=== PATIENT | male | born 1960 | race Caucasian/White ===

== ENCOUNTER 2017-08-13 07:22 | Emergency (ER) | payer OTHER ==
[~2017-08-13] VITALS: Ht 177.8 cm; Wt 111.6 kg
[~2017-08-13 07:22] MED LIST: ECOT500T PO; MOTR200T PO
[2017-08-13 07:26] VITALS: BP 189/85; PULSE 89; RESP 16; TEMP 97.9; O2SAT 97
[2017-08-13] MEDS ORDERED: LOSA100T PO (07:38)
[2017-08-13] MEDS ORDERED: HYDR25TA5 PO (07:38)
--- NOTE | 2017-08-13 08:00 | PD ---
HPI Chief Complaint: Abnormal Results Time Seen by Provider: 07:38 Travel History International Travel<30 days: No Contact w/Intl Traveler<30days: No Traveled to known affect area: No History of Present Illness HPI 57yo M with no PMH presents to the ED with c/o pain in all his joints for a few weeks and is getting worst. Pt went to his PMD for routine check up about a month ago. He was called the next day because his blood count was high and was told to come in to have his blood drawn and further evaluation. Pt decided to go to a blood place to just have to blood released. Has not had further work up. Had some chills but no fever. Denies any chest pain, sob, n/v, abdominal pain, focal weakness or numbness or trauma. Denies any weight loss. PFSH Past Medical History Cardiovascular Problems: Yes (htn on meds) Diminished Hearing: No Hypertension: Yes Musculoskeletal: Yes (CHRONIC BACK & SHOULDER PAIN) Tetanus Vaccination: Unknown Influenza Vaccination: No Past Surgical History Other Surgery: Yes (CYST REMOVED) Social History Alcohol Use: Yes ("WEEKLY") Tobacco Use: No Substance Use: No Allergies-Medications (Allergen,Severity, Reaction): Coded Allergies: No Known Allergies (Verified Adverse Reaction, Unknown, 08/13/17) Reported Meds & Prescriptions Reported Meds & Active Scripts Active Reported Hydrochlorothiazide 25 Mg Tab 25 Mg PO DAILY Losartan (Losartan Potassium) 100 Mg Tab 100 Mg PO DAILY Review of Systems Except as stated in HPI: all other systems reviewed are Neg Physical Exam Narrative GENERAL: 57yo M in mild distress. SKIN: Focused skin assessment warm/dry. HEAD: Atraumatic. Normocephalic. EYES: Pupils equal and round. No scleral icterus. No injection or drainage. CARDIOVASCULAR: Regular rate and rhythm. No murmur appreciated. RESPIRATORY: No accessory muscle use. Clear to auscultation. Breath sounds equal bilaterally. GASTROINTESTINAL: Abdomen soft, non-tender, nondistended. MUSCULOSKELETAL: No obvious deformities. No clubbing. No cyanosis. No edema. FROM in all joints. No edema or erythema in bilateral ankles, knees, hips, wrist, elbow. NEUROLOGICAL: Awake and alert. No obvious cranial nerve deficits. Motor grossly within normal limits. Normal speech. PSYCHIATRIC: Appropriate mood and affect; insight and judgment normal. Data Data Last Documented VS Vital Signs Date Time Temp Pulse Resp B/P (MAP) Pulse Ox O2 Delivery O2 Flow Rate FiO2 08/13/17 07:35 16 08/13/17 07:26 97.9 89 189/85 (119) 97 Orders Orders Complete Blood Count With Diff (08/13/17 07:55) Comprehensive Metabolic Panel (08/13/17 07:55) Urinalysis - C+S If Indicated (08/13/17 09:40) Blood Gas Carboxyhemoglobin (08/13/17 09:43) Ketorolac Inj (Toradol Inj) (08/13/17 10:15) Labs Laboratory Tests Test 08/13/17 08:07 08/13/17 09:53 08/13/17 10:04 White Blood Count 11.0 TH/MM3 Red Blood Count 5.25 MIL/MM3 Hemoglobin 17.2 GM/DL Hematocrit 50.7 % Mean Corpuscular Volume 96.6 FL Mean Corpuscular Hemoglobin 32.8 PG Mean Corpuscular Hemoglobin Concent 33.9 % Red Cell Distribution Width 12.8 % Platelet Count 280 TH/MM3 Mean Platelet Volume 7.7 FL Neutrophils (%) (Auto) 70.4 % Lymphocytes (%) (Auto) 13.8 % Monocytes (%) (Auto) 7.9 % Eosinophils (%) (Auto) 4.1 % Basophils (%) (Auto) 3.8 % Neutrophils # (Auto) 7.8 TH/MM3 Lymphocytes # (Auto) 1.5 TH/MM3 Monocytes # (Auto) 0.9 TH/MM3 Eosinophils # (Auto) 0.4 TH/MM3 Basophils # (Auto) 0.4 TH/MM3 CBC Comment DIFF FINAL Differential Comment Blood Urea Nitrogen 23 MG/DL Creatinine 1.30 MG/DL Random Glucose 112 MG/DL Total Protein 7.0 GM/DL Albumin 3.8 GM/DL Calcium Level 8.5 MG/DL Alkaline Phosphatase 63 U/L Aspartate Amino Transf (AST/SGOT) 26 U/L Alanine Aminotransferase (ALT/SGPT) 58 U/L Total Bilirubin 0.6 MG/DL Sodium Level 137 MEQ/L Potassium Level 3.6 MEQ/L Chloride Level 104 MEQ/L Carbon Dioxide Level 25.6 MEQ/L Anion Gap 7 MEQ/L Estimat Glomerular Filtration Rate 57 ML/MIN Arterial Blood Carboxyhemoglobin 1.6 % Urine Collection Type CLEAN CATCH Urine Color YELLOW Urine Turbidity CLEAR Urine pH 6.0 Urine Specific [place] 1.025 Urine Protein NEG mg/dL Urine Glucose (UA) NEG mg/dL Urine Ketones TRACE mg/dL Urine Occult Blood NEG Urine Nitrite NEG Urine Bilirubin NEG Urine Leukocyte Esterase NEG Urine RBC 0-3 /hpf Urine WBC 0-2 /hpf Urine Squamous Epithelial Cells 0-5 /hpf Microscopic Urinalysis Comment CULT NOT INDICATED Urine Collection Time 10:04 [facility] Medical Decision Making Medical Screen Exam Complete: Yes Emergency Medical Condition: Yes Differential Diagnosis Hemochromatosis vs. rheumatologic disease vs. leukemia Narrative Course 57yo M with c/o diffuse joint pain for a few weeks. I do not see any signs of infections on exam. No trauma. No focal neurologic deficits. Labs reviewed, no leukocytosis. Hemoglobin is only slightly elevated at 17.2. Hematocrit normal. BUN mildly elevated at 23. Pt's said his urine was cloudy so UA ordered and showed trace ketones. No WBC. Pt is likely dehydrated. He is tolerating PO so can hydrate orally. His was insistent on checking for CO poisoning and I explained that I do not feel that this is CO poisoning. Carboxyhemoglobin normal at 1.6%. Pt given toradol with improvement of pain. Instructed to follow up with primary care physician for further work up. Diagnosis Primary Impression: Dehydration Patient Instructions: General Instructions Departure Forms: Tests/Procedures Additional Instructions: Please follow up with your primary care physician for further work up of your increase hemoglobin and joint pain. Please drink plenty of fluids and keep hydrated. Return to the ED if symptoms worsen. Med/Other Pt SpecificInfo: Prescription(s) given Scripts Acetaminophen (Tylenol) 325 Mg Tab 650 MG PO Q6H Y for PAIN SCALE 1 TO 4, #20 TAB 0 Refills Prov: Maryam Campos 08/13/17 Disposition: 01 DISCHARGE HOME Condition: Stable Maryam Campos Aug 13, 2017 08:00
[2017-08-13 08:14] LABS: AUTOMATED NEUTROPHIL # 7.8 TH/MM3 (1.8-7.7); BASOPHIL # 0.4 TH/MM3 (0-0.2); BASOPHIL % 3.8 % (0.0-2.0); EOSINOPHIL # 0.4 TH/MM3 (0-0.4); EOSINOPHIL % 4.1 % (0.0-4.0); HEMATOCRIT 50.7 % (39.0-51.0); HEMO FLAGS DIFF FINAL; LYMPH % 13.8 % (9.0-44.0); LYMPHOCYTE # 1.5 TH/MM3 (1.0-4.8); MEAN CELL VOLUME 96.6 FL (80.0-100.0); MEAN CORPUSCULAR HEMOGLOBIN 32.8 PG (27.0-34.0); MEAN CORPUSCULAR HGB CONC 33.9 % (32.0-36.0); MONO % 7.9 % (0.0-8.0); NEUT % 70.4 % (16.0-70.0); PLATELET COUNT 280 TH/MM3 (150-450); RED BLOOD COUNT 5.25 MIL/MM3 (4.50-5.90); RED CELL DISTRIBUTION WIDTH 12.8 % (11.6-17.2)
[2017-08-13 08:25] LABS: CHLORIDE 104 MEQ/L (98-107); POTASSIUM 3.6 MEQ/L (3.5-5.1); SODIUM (NA) 137 MEQ/L (136-145)
[2017-08-13 08:28] LABS: ANION GAP 7 MEQ/L (5-15); BICARBONATE 25.6 MEQ/L (21.0-32.0)
[2017-08-13 08:29] LABS: BLOOD UREA NITROGEN 23 MG/DL (7-18)
[2017-08-13 08:32] LABS: ALT (GPT) 58 U/L (12-78); AST (GOT) 26 U/L (15-37); GLOMERULAR FILTRATION RATE 57 ML/MIN (>89)
[2017-08-13 08:33] LABS: TOTAL BILIRUBIN ADULT 0.6 MG/DL (0.2-1.0)
[2017-08-13 08:34] LABS: ALKALINE PHOSPHATASE 63 U/L (45-117)
[2017-08-13 10:13] LABS: BLOOD, URINE NEG (NEG); GLUCOSE,URINE NEG (NEG); KETONE, URINE TRACE mg/dL (NEG); NITRITE,URINE NEG (NEG)
[2017-08-13] MEDS ORDERED: KETOROLAC TROMETHAMINE 30 MG/ML (IVP) VIAL IV PUSH ONE (10:15)
[2017-08-13 10:20] LABS: METHOD OF COLLECTION CLEAN CATCH
[2017-08-13 10:21] LABS: COMMENT (UR) CULT NOT INDICATED; CULTURE IF INDICATED CULT NOT INDICATED; RBC, URINE 0-3 /hpf (0-3); SQUAMOUS EPITHELIAL CELL URINE 0-5 /hpf (0-5); URINE COLOR YELLOW (YELLW/STRAW); WBC, URINE 0-2 /hpf (0-5)
[2017-08-13] MEDS ORDERED: TYLE325T PO (10:41)
[2017-08-13 10:52] VITALS: BP 179/86
== END 2017-08-13 11:09 | disposition home or self-care (01) ==
LOC: PHED 07:22
DX: E86.0 Dehydration (principal); M25.50 Pain in unspecified joint; R68.83 Chills (without fever); I10 Essential (primary) hypertension; Z86.79 Personal history of other diseases of the circulatory system; Z87.39 Personal history of other diseases of the musculoskeletal system and connective tissue
CPT/HCPCS: 80053; 81001; 82375; 85025; 96374; 99284; J1885